=== PATIENT | female | born 1930 | race Caucasian/White ===

== ENCOUNTER 2016-03-21 11:13 | Inpatient (IN) | payer MEDICARE, BC ==
[~2016-03-21] VITALS: Ht 165.1 cm; Wt 94.5 kg
[2016-03-21] MEDS ORDERED: ACETAMINOPHEN 325 MG TAB PO PRN (11:20)
[2016-03-21] MEDS ORDERED: ALPRAZOLAM 0.25 MG TAB PO PRN (11:20)
[2016-03-21] MEDS ORDERED: DEXTROSE 50% SYRINGE 50 ML IV PRN ×2 (11:20→20:40)
[2016-03-21] MEDS ORDERED: BISACODYL EC 5 MG TAB PO PRN (11:20)
[2016-03-21] MEDS ORDERED: ALU/MAG/SIM 30 ML UDC PO PRN (11:20)
[2016-03-21] MEDS ORDERED: ZOLPIDEM 5 MG TAB PO PRN (11:20)
[2016-03-21] MEDS ORDERED: GLUCAGON 1 MG VIAL IM PRN ×2 (11:20→20:40)
[2016-03-21] MEDS ORDERED: SALINE FLUSH 10 ML FLUSH PRN (11:20)
[2016-03-21] MEDS ORDERED: MAG HYDROX 30 ML UDC PO PRN (11:20)
[2016-03-21] MEDS ORDERED: TRAMADOL 50 MG TAB PO PRN (13:15)
[2016-03-21 13:22] VITALS: Ht 165.1 cm; Wt 94.5 kg
[2016-03-21] MEDS ORDERED: [UNRECOGNIZED DRUG - OTHER] PO SCH (13:22)
[2016-03-21 13:23] VITALS: BP_SYST 123; BP_SYST 126; RESP 20; TEMP 97.9
[2016-03-21] MEDS ORDERED: [UNRECOGNIZED DRUG - REMARK] XX SCH (13:23)
[2016-03-21] MEDS: NEB-XOPENEX 1.25 MG/3 ML INH SCH ×4 (15:00→23:58)
[2016-03-21] MEDS: NEB-BUDESONIDE 0.5 MG INH SCH ×2 (15:11→20:08)
[2016-03-21 15:18] VITALS: RESP 12
[2016-03-21 15:19] VITALS: BP_SYST 127; RESP 18; TEMP 98
[2016-03-21] MEDS: CEFTRIAXONE 1 GM in SODIUM CHLORIDE 0.9% 50 ML IV SCH (15:54)
[2016-03-21] MEDS: PANTOPRAZOLE 40 MG TAB PO SCH (16:00)
[2016-03-21] MEDS: ASPIRIN EC 81 MG TAB PO SCH (16:02)
[2016-03-21] MEDS: DOCUSATE SOD 100 MG CAP PO SCH (16:03)
[2016-03-21] MEDS: Carvedilol 6.25 MG TAB PO SCH ×2 (16:03→21:38)
[2016-03-21] MEDS: Furosemide 20 MG TAB PO SCH (16:04)
[2016-03-21] MEDS: CHOLECALCIFEROL 1,000 UNITS TAB PO SCH (16:04)
[2016-03-21] MEDS: MULTIVITS/MINERALS (THERAGRAN M) TAB PO SCH (16:05)
[2016-03-21] MEDS: SPIRONOLACTONE 25 MG TAB PO SCH (16:05)
[2016-03-21] MEDS: LISINOPRIL 5 MG TAB PO SCH (16:05)
[2016-03-21] MEDS: ENOXAPARIN 40 MG/0.4 ML SYR SUBQ SCH (16:15)
[2016-03-21] MEDS: METHYLPRED SOD SUCC 125 MG/2 ML VIAL IV SCH (16:15)
[2016-03-21] MEDS ORDERED: *PINK BRACELET XX ONE (17:00)
[2016-03-21] MEDS: AZITHROMYCIN 500 MG in SODIUM CHLORIDE 0.9% 250 ML IV SCH (17:03)
[2016-03-21] MEDS: *HOME MEDS IN MED CART XX SCH (20:00)
[2016-03-21 20:12] VITALS: BP_SYST 117; RESP 18; TEMP 97.8
[2016-03-21] MEDS: LORAZEPAM 0.5 MG TAB PO SCH (21:37)
[2016-03-21] MEDS: MONTELUKAST 10 MG TAB PO SCH (21:37)
[2016-03-21] MEDS: SALINE FLUSH 10 ML FLUSH SCH (21:37)
[2016-03-21 22:52] VITALS: BP_SYST 109; RESP 18; TEMP 97.5
[2016-03-22] MEDS: METHYLPRED SOD SUCC 125 MG/2 ML VIAL IV SCH ×3 (00:20→16:54)
[2016-03-22] MEDS: NEB-XOPENEX 1.25 MG/3 ML INH SCH ×6 (03:00→23:27)
[2016-03-22 03:33] VITALS: BP_SYST 130; RESP 18; TEMP 97.5
[2016-03-22] MEDS: SODIUM CHLORIDE 0.9% FLUSH BAG 500 ML IV SCH (05:59)
[2016-03-22] MEDS: PANTOPRAZOLE 40 MG TAB PO SCH (06:00)
[2016-03-22] MEDS: NEB-BUDESONIDE 0.5 MG INH SCH ×2 (06:58→19:47)
[2016-03-22 07:00] VITALS: BP_SYST 136; RESP 20; TEMP 97.7
[2016-03-22] MEDS: *HOME MEDS IN MED CART XX SCH ×2 (08:00→20:00)
[2016-03-22] MEDS: ENOXAPARIN 40 MG/0.4 ML SYR SUBQ SCH (09:00)
[2016-03-22] MEDS: SALINE FLUSH 10 ML FLUSH SCH ×2 (09:32→20:31)
[2016-03-22] MEDS: CEFTRIAXONE 1 GM in SODIUM CHLORIDE 0.9% 50 ML IV SCH (09:33)
[2016-03-22] MEDS: Carvedilol 6.25 MG TAB PO SCH ×2 (09:35→20:31)
[2016-03-22] MEDS: ASPIRIN EC 81 MG TAB PO SCH (09:35)
[2016-03-22] MEDS: SPIRONOLACTONE 25 MG TAB PO SCH (09:35)
[2016-03-22] MEDS: PRASUGREL 5 MG TAB PO SCH (09:35)
[2016-03-22] MEDS: DOCUSATE SOD 100 MG CAP PO SCH (09:35)
[2016-03-22] MEDS: Furosemide 20 MG TAB PO SCH (09:36)
[2016-03-22] MEDS: MULTIVITS/MINERALS (THERAGRAN M) TAB PO SCH (09:36)
[2016-03-22] MEDS: CHOLECALCIFEROL 1,000 UNITS TAB PO SCH (09:37)
[2016-03-22] MEDS: LISINOPRIL 5 MG TAB PO SCH (09:37)
[2016-03-22] MEDS: NITROGLYCERIN 0.4 MG/HR PATCH TRANSDERM SCH (09:39)
[2016-03-22] MEDS: LORAZEPAM 0.5 MG TAB PO SCH ×2 (09:53→20:31)
[2016-03-22] MEDS: [UNRECOGNIZED DRUG - OTHER] PO SCH (09:53)
[2016-03-22] MEDS ORDERED: KCL CR 10 MEQ CAP PO ONE (10:00)
[2016-03-22] MEDS ORDERED: Furosemide 20 MG/2 ML VIAL IV ONE (10:00)
[2016-03-22 11:00] VITALS: BP_SYST 148; RESP 18; TEMP 97.8
[2016-03-22] MEDS: AZITHROMYCIN 500 MG in SODIUM CHLORIDE 0.9% 250 ML IV SCH (11:11)
[2016-03-22 15:00] VITALS: BP_SYST 98; RESP 18; TEMP 98.3
[2016-03-22] MEDS: SOLIFENACIN 5 MG TAB PO SCH (15:18)
[2016-03-22 19:20] VITALS: BP_SYST 128; RESP 18; TEMP 97.8
[2016-03-22] MEDS: MONTELUKAST 10 MG TAB PO SCH (20:31)
[2016-03-22 22:42] VITALS: BP_SYST 132; RESP 16; TEMP 98
[2016-03-23] VITALS (7 sets, daily range): BP systolic 116–132; RESP 16–20; TEMP 97.1–98.9
[2016-03-23] MEDS: METHYLPRED SOD SUCC 125 MG/2 ML VIAL IV SCH ×3 (00:47→17:08)
[2016-03-23] MEDS: NEB-XOPENEX 1.25 MG/3 ML INH SCH ×6 (02:23→22:14)
[2016-03-23] MEDS: SODIUM CHLORIDE 0.9% FLUSH BAG 500 ML IV SCH (06:07)
[2016-03-23] MEDS: PANTOPRAZOLE 40 MG TAB PO SCH (06:07)
[2016-03-23] MEDS: NEB-BUDESONIDE 0.5 MG INH SCH ×2 (07:41→18:29)
[2016-03-23] MEDS: *HOME MEDS IN MED CART XX SCH ×2 (07:58→20:39)
[2016-03-23] MEDS: [UNRECOGNIZED DRUG - OTHER] PO SCH (08:08)
[2016-03-23] MEDS: NITROGLYCERIN 0.4 MG/HR PATCH TRANSDERM SCH (08:09)
[2016-03-23] MEDS: MULTIVITS/MINERALS (THERAGRAN M) TAB PO SCH (08:10)
[2016-03-23] MEDS: AZITHROMYCIN 500 MG in SODIUM CHLORIDE 0.9% 250 ML IV SCH (08:10)
[2016-03-23] MEDS: CEFTRIAXONE 1 GM in SODIUM CHLORIDE 0.9% 50 ML IV SCH (08:10)
[2016-03-23] MEDS: CHOLECALCIFEROL 1,000 UNITS TAB PO SCH (08:10)
[2016-03-23] MEDS: ASPIRIN EC 81 MG TAB PO SCH (08:11)
[2016-03-23] MEDS: SOLIFENACIN 5 MG TAB PO SCH (08:11)
[2016-03-23] MEDS: Carvedilol 6.25 MG TAB PO SCH ×2 (08:11→21:48)
[2016-03-23] MEDS: DOCUSATE SOD 100 MG CAP PO SCH (08:11)
[2016-03-23] MEDS: PRASUGREL 5 MG TAB PO SCH (08:11)
[2016-03-23] MEDS: SPIRONOLACTONE 25 MG TAB PO SCH (08:11)
[2016-03-23] MEDS: Furosemide 20 MG/2 ML VIAL IV SCH (08:12)
[2016-03-23] MEDS: LISINOPRIL 5 MG TAB PO SCH (08:12)
[2016-03-23] MEDS: ENOXAPARIN 40 MG/0.4 ML SYR SUBQ SCH (08:13)
[2016-03-23] MEDS: SALINE FLUSH 10 ML FLUSH SCH ×2 (08:13→21:49)
[2016-03-23] MEDS: LORAZEPAM 0.5 MG TAB PO SCH ×2 (08:15→21:48)
[2016-03-23] MEDS: MONTELUKAST 10 MG TAB PO SCH (21:48)
[2016-03-24] MEDS: METHYLPRED SOD SUCC 125 MG/2 ML VIAL IV SCH ×4 (01:06→23:57)
[2016-03-24 03:46] VITALS: BP_SYST 136; RESP 20; TEMP 98.1
[2016-03-24] MEDS: NEB-XOPENEX 1.25 MG/3 ML INH SCH ×6 (04:07→23:45)
[2016-03-24] MEDS: PANTOPRAZOLE 40 MG TAB PO SCH (06:27)
[2016-03-24] MEDS: SODIUM CHLORIDE 0.9% FLUSH BAG 500 ML IV SCH (06:27)
[2016-03-24] MEDS: NEB-BUDESONIDE 0.5 MG INH SCH ×2 (06:54→19:38)
[2016-03-24 07:00] VITALS: BP_SYST 126; RESP 16; TEMP 97.8
[2016-03-24] MEDS: *HOME MEDS IN MED CART XX SCH ×2 (08:00→20:00)
[2016-03-24] MEDS: SALINE FLUSH 10 ML FLUSH SCH ×2 (08:57→22:05)
[2016-03-24] MEDS: ASPIRIN EC 81 MG TAB PO SCH (08:59)
[2016-03-24] MEDS: SPIRONOLACTONE 25 MG TAB PO SCH (08:59)
[2016-03-24] MEDS: CEFTRIAXONE 1 GM in SODIUM CHLORIDE 0.9% 50 ML IV SCH (08:59)
[2016-03-24] MEDS: Furosemide 20 MG/2 ML VIAL IV SCH (08:59)
[2016-03-24] MEDS: [UNRECOGNIZED DRUG - OTHER] PO SCH (08:59)
[2016-03-24] MEDS: DOCUSATE SOD 100 MG CAP PO SCH (09:00)
[2016-03-24] MEDS: SOLIFENACIN 5 MG TAB PO SCH (09:00)
[2016-03-24] MEDS: PRASUGREL 5 MG TAB PO SCH (09:00)
[2016-03-24] MEDS: Carvedilol 6.25 MG TAB PO SCH ×2 (09:01→22:05)
[2016-03-24] MEDS: MULTIVITS/MINERALS (THERAGRAN M) TAB PO SCH (09:01)
[2016-03-24] MEDS: CHOLECALCIFEROL 1,000 UNITS TAB PO SCH (09:01)
[2016-03-24] MEDS: NITROGLYCERIN 0.4 MG/HR PATCH TRANSDERM SCH (09:02)
[2016-03-24] MEDS: LISINOPRIL 5 MG TAB PO SCH (09:02)
[2016-03-24] MEDS: ENOXAPARIN 40 MG/0.4 ML SYR SUBQ SCH ×2 (09:03→09:21)
[2016-03-24] MEDS: LORAZEPAM 0.5 MG TAB PO SCH ×2 (09:10→22:05)
[2016-03-24] MEDS: AZITHROMYCIN 500 MG in SODIUM CHLORIDE 0.9% 250 ML IV SCH (10:17)
[2016-03-24 11:00] VITALS: BP_SYST 123; RESP 16; TEMP 97.3
[2016-03-24 15:00] VITALS: BP_SYST 127; RESP 16; TEMP 97.4
[2016-03-24 19:36] VITALS: BP_SYST 128; RESP 16; TEMP 97.8
[2016-03-24] MEDS: MONTELUKAST 10 MG TAB PO SCH (22:05)
[2016-03-24 23:42] VITALS: BP_SYST 146; RESP 16; TEMP 97.7
[2016-03-25] VITALS (7 sets, daily range): BP systolic 119–157; RESP 16–20; TEMP 97.7–98.3
[2016-03-25] MEDS: NEB-XOPENEX 1.25 MG/3 ML INH SCH ×6 (02:19→23:00)
[2016-03-25] MEDS: PANTOPRAZOLE 40 MG TAB PO SCH (06:17)
[2016-03-25] MEDS: SODIUM CHLORIDE 0.9% FLUSH BAG 500 ML IV SCH (06:17)
[2016-03-25] MEDS: NEB-BUDESONIDE 0.5 MG INH SCH ×2 (07:33→19:52)
[2016-03-25] MEDS: *HOME MEDS IN MED CART XX SCH ×2 (08:00→20:00)
[2016-03-25] MEDS: SALINE FLUSH 10 ML FLUSH SCH ×2 (08:16→21:03)
[2016-03-25] MEDS: METHYLPRED SOD SUCC 125 MG/2 ML VIAL IV SCH ×3 (08:16→23:45)
[2016-03-25] MEDS: [UNRECOGNIZED DRUG - OTHER] PO SCH (08:17)
[2016-03-25] MEDS: SPIRONOLACTONE 25 MG TAB PO SCH (08:18)
[2016-03-25] MEDS: Carvedilol 6.25 MG TAB PO SCH ×2 (08:18→21:03)
[2016-03-25] MEDS: DOCUSATE SOD 100 MG CAP PO SCH (08:18)
[2016-03-25] MEDS: MULTIVITS/MINERALS (THERAGRAN M) TAB PO SCH (08:19)
[2016-03-25] MEDS: ASPIRIN EC 81 MG TAB PO SCH (08:19)
[2016-03-25] MEDS: PRASUGREL 5 MG TAB PO SCH (08:19)
[2016-03-25] MEDS: LORAZEPAM 0.5 MG TAB PO SCH ×2 (08:19→21:03)
[2016-03-25] MEDS: CHOLECALCIFEROL 1,000 UNITS TAB PO SCH (08:19)
[2016-03-25] MEDS: LISINOPRIL 5 MG TAB PO SCH (08:20)
[2016-03-25] MEDS: NITROGLYCERIN 0.4 MG/HR PATCH TRANSDERM SCH (08:22)
[2016-03-25] MEDS: ENOXAPARIN 40 MG/0.4 ML SYR SUBQ SCH (08:22)
[2016-03-25] MEDS: CEFTRIAXONE 1 GM in SODIUM CHLORIDE 0.9% 50 ML IV SCH (10:06)
[2016-03-25] MEDS: SOLIFENACIN 5 MG TAB PO SCH (10:07)
[2016-03-25] MEDS: MONTELUKAST 10 MG TAB PO SCH (21:03)
[2016-03-26] MEDS: NEB-XOPENEX 1.25 MG/3 ML INH SCH ×6 (03:07→23:40)
[2016-03-26 04:56] VITALS: BP_SYST 144; RESP 16; TEMP 98.6
[2016-03-26] MEDS: PANTOPRAZOLE 40 MG TAB PO SCH (06:28)
[2016-03-26] MEDS: SODIUM CHLORIDE 0.9% FLUSH BAG 500 ML IV SCH (06:28)
[2016-03-26] MEDS: NEB-BUDESONIDE 0.5 MG INH SCH ×2 (07:32→18:59)
[2016-03-26 07:57] VITALS: BP_SYST 126; RESP 16; TEMP 98.8
[2016-03-26] MEDS: *HOME MEDS IN MED CART XX SCH ×2 (08:00→19:09)
[2016-03-26] MEDS: SALINE FLUSH 10 ML FLUSH SCH ×2 (08:08→20:31)
[2016-03-26] MEDS: METHYLPRED SOD SUCC 125 MG/2 ML VIAL IV SCH ×3 (08:09→20:31)
[2016-03-26] MEDS: CEFTRIAXONE 1 GM in SODIUM CHLORIDE 0.9% 50 ML IV SCH (08:09)
[2016-03-26] MEDS: SPIRONOLACTONE 25 MG TAB PO SCH (08:13)
[2016-03-26] MEDS: SOLIFENACIN 5 MG TAB PO SCH (08:13)
[2016-03-26] MEDS: ASPIRIN EC 81 MG TAB PO SCH (08:14)
[2016-03-26] MEDS: CHOLECALCIFEROL 1,000 UNITS TAB PO SCH (08:14)
[2016-03-26] MEDS: PRASUGREL 5 MG TAB PO SCH (08:14)
[2016-03-26] MEDS: LISINOPRIL 5 MG TAB PO SCH (08:14)
[2016-03-26] MEDS: DOCUSATE SOD 100 MG CAP PO SCH (08:14)
[2016-03-26] MEDS: Carvedilol 6.25 MG TAB PO SCH ×2 (08:15→20:31)
[2016-03-26] MEDS: LORAZEPAM 0.5 MG TAB PO SCH (08:15)
[2016-03-26] MEDS: MULTIVITS/MINERALS (THERAGRAN M) TAB PO SCH (08:15)
[2016-03-26] MEDS: ENOXAPARIN 40 MG/0.4 ML SYR SUBQ SCH (08:16)
[2016-03-26] MEDS: NITROGLYCERIN 0.4 MG/HR PATCH TRANSDERM SCH (08:17)
[2016-03-26] MEDS: [UNRECOGNIZED DRUG - OTHER] PO SCH (08:18)
[2016-03-26 11:23] VITALS: BP_SYST 114; RESP 20; TEMP 98.2
[2016-03-26] MEDS ORDERED: BISACODYL 10 MG SUPP RECTAL PRN (14:00)
[2016-03-26] MEDS ORDERED: BISACODYL EC 5 MG TAB PO PRN (14:00)
[2016-03-26] MEDS ORDERED: MAG HYDROX 30 ML UDC PO PRN (14:00)
[2016-03-26] MEDS: POLYETHYLENE GLYCOL 17 GM PACKET PO SCH (15:04)
[2016-03-26] MEDS: BENZONATATE 100 MG CAP PO SCH ×2 (15:06→20:32)
[2016-03-26] MEDS: Senna/DSS 50/8.6 MG TAB PO SCH (15:07)
[2016-03-26 16:34] VITALS: BP_SYST 140; RESP 20; TEMP 97.8
[2016-03-26] MEDS: MONTELUKAST 10 MG TAB PO SCH (20:31)
[2016-03-26 21:58] VITALS: BP_SYST 134; RESP 20; TEMP 98.1
[2016-03-26 23:50] VITALS: BP_SYST 139; RESP 18; TEMP 97.9
[2016-03-27] VITALS (13 sets, daily range): BP systolic 123–156; RESP 16–18; TEMP 97.6–98.3
[2016-03-27] MEDS: NEB-XOPENEX 1.25 MG/3 ML INH SCH ×6 (03:01→23:05)
[2016-03-27] MEDS: NEB-BUDESONIDE 0.5 MG INH SCH ×2 (05:28→19:13)
[2016-03-27] MEDS: PANTOPRAZOLE 40 MG TAB PO SCH (06:22)
[2016-03-27] MEDS: SODIUM CHLORIDE 0.9% FLUSH BAG 500 ML IV SCH (06:23)
[2016-03-27] MEDS: SALINE FLUSH 10 ML FLUSH SCH ×2 (07:56→20:19)
[2016-03-27] MEDS: *HOME MEDS IN MED CART XX SCH ×2 (07:56→20:00)
[2016-03-27] MEDS: METHYLPRED SOD SUCC 125 MG/2 ML VIAL IV SCH (07:57)
[2016-03-27] MEDS: [UNRECOGNIZED DRUG - OTHER] PO SCH (07:58)
[2016-03-27] MEDS: LISINOPRIL 5 MG TAB PO SCH (08:00)
[2016-03-27] MEDS: SOLIFENACIN 5 MG TAB PO SCH (08:00)
[2016-03-27] MEDS: CHOLECALCIFEROL 1,000 UNITS TAB PO SCH (08:01)
[2016-03-27] MEDS: ASPIRIN EC 81 MG TAB PO SCH (08:02)
[2016-03-27] MEDS: PRASUGREL 5 MG TAB PO SCH (08:02)
[2016-03-27] MEDS: SPIRONOLACTONE 25 MG TAB PO SCH (08:03)
[2016-03-27] MEDS: DOCUSATE SOD 100 MG CAP PO SCH (08:03)
[2016-03-27] MEDS: Senna/DSS 50/8.6 MG TAB PO SCH (08:04)
[2016-03-27] MEDS: BENZONATATE 100 MG CAP PO SCH ×3 (08:04→20:19)
[2016-03-27] MEDS: Carvedilol 6.25 MG TAB PO SCH ×2 (08:04→20:19)
[2016-03-27] MEDS: MULTIVITS/MINERALS (THERAGRAN M) TAB PO SCH (08:04)
[2016-03-27] MEDS: ENOXAPARIN 40 MG/0.4 ML SYR SUBQ SCH (08:05)
[2016-03-27] MEDS: POLYETHYLENE GLYCOL 17 GM PACKET PO SCH (08:06)
[2016-03-27] MEDS: NITROGLYCERIN 0.4 MG/HR PATCH TRANSDERM SCH (08:06)
[2016-03-27] MEDS: CEFTRIAXONE 1 GM in SODIUM CHLORIDE 0.9% 50 ML IV SCH (09:47)
[2016-03-27] MEDS: MONTELUKAST 10 MG TAB PO SCH (20:19)
[2016-03-28] VITALS (12 sets, daily range): BP systolic 107–144; RESP 18–20; TEMP 97.5–98.7
[2016-03-28] MEDS: NEB-XOPENEX 1.25 MG/3 ML INH SCH ×4 (02:41→14:40)
[2016-03-28] MEDS: SODIUM CHLORIDE 0.9% FLUSH BAG 500 ML IV SCH (05:30)
[2016-03-28] MEDS: PANTOPRAZOLE 40 MG TAB PO SCH (06:04)
[2016-03-28] MEDS: NEB-BUDESONIDE 0.5 MG INH SCH (06:51)
[2016-03-28] MEDS: CEFTRIAXONE 1 GM in SODIUM CHLORIDE 0.9% 50 ML IV SCH (08:38)
[2016-03-28] MEDS: LISINOPRIL 5 MG TAB PO SCH (08:40)
[2016-03-28] MEDS: [UNRECOGNIZED DRUG - OTHER] PO SCH (08:40)
[2016-03-28] MEDS: POLYETHYLENE GLYCOL 17 GM PACKET PO SCH (08:40)
[2016-03-28] MEDS: ASPIRIN EC 81 MG TAB PO SCH (08:40)
[2016-03-28] MEDS: Senna/DSS 50/8.6 MG TAB PO SCH (08:41)
[2016-03-28] MEDS: Carvedilol 6.25 MG TAB PO SCH (08:41)
[2016-03-28] MEDS: SOLIFENACIN 5 MG TAB PO SCH (08:41)
[2016-03-28] MEDS: BENZONATATE 100 MG CAP PO SCH (08:41)
[2016-03-28] MEDS: PRASUGREL 5 MG TAB PO SCH (08:42)
[2016-03-28] MEDS: DOCUSATE SOD 100 MG CAP PO SCH (08:46)
[2016-03-28] MEDS: SPIRONOLACTONE 25 MG TAB PO SCH (08:46)
[2016-03-28] MEDS: MULTIVITS/MINERALS (THERAGRAN M) TAB PO SCH (08:46)
[2016-03-28] MEDS: SALINE FLUSH 10 ML FLUSH SCH (08:47)
[2016-03-28] MEDS: NITROGLYCERIN 0.4 MG/HR PATCH TRANSDERM SCH (08:52)
[2016-03-28] MEDS ORDERED: PREDNISONE 20 MG TAB PO SCH (09:00)
[2016-03-28] MEDS: CHOLECALCIFEROL 1,000 UNITS TAB PO SCH (09:00)
[2016-03-28] MEDS ORDERED: ENOXAPARIN 30 MG/0.3 ML SYR SUBQ SCH (09:00)
[2016-03-29] MEDS ORDERED: LISINOPRIL 10 MG TAB PO SCH (09:00)
== END 2016-03-28 18:25 | disposition home or self-care (01) | DRG 203 ==
LOC: ENRESERVTM → ENRESERVDT → 2NO 11:38 → ENPENDDIS 11:38 → 3NT 03-27 09:08
PROVIDERS: ADMIT Internal Medicine; ATTEND Internal Medicine
DX: J45.41 Moderate persistent asthma with (acute) exacerbation (principal); J20.9 Acute bronchitis, unspecified; N18.9 Chronic kidney disease, unspecified; R32 Unspecified urinary incontinence; I25.10 Atherosclerotic heart disease of native coronary artery without angina pectoris; Z95.5 Presence of coronary angioplasty implant and graft; E78.5 Hyperlipidemia, unspecified; I10 Essential (primary) hypertension; T38.0X5A Adverse effect of glucocorticoids and synthetic analogues, initial encounter; K21.9 Gastro-esophageal reflux disease without esophagitis; Z79.82 Long term (current) use of aspirin; I25.2 Old myocardial infarction
CPT/HCPCS: 36600; 71020; 80048; 80053; 82803; 82947; 83735; 83880; 84439; 84443; 85025; 85652; 93005; 94640; 94799